=== PATIENT | female | born 1990 | race Caucasian/White ===

== ENCOUNTER 2016-07-20 13:24 | Emergency (ER) | payer SELFPAY ==
--- NOTE | ~2016-07-20 | ER ---
PATIENT'S NAME: DELISA BURNS [facility] AGE: 25 Y [address] ROOM: [place] [id number] LOCATION: [facility] ADMIT DATE: 07/20/2016 ER/Outpatient Report DISCHARGE DATE: 07/20/2016 FAMILY PHYSICIAN: PHYSICIAN, NO ATTENDING PHYSICIAN: Lan Curtis CHIEF COMPLAINT: Cut to left hand. TIME OF THE PATIENT ARRIVAL: 1324 hours. TIME OF THE PATIENT EVALUATION: 1335 hours. HISTORY OF PRESENT ILLNESS: This is a 25-year-old female presents to the ER who states she cut her hand with an apple cutter 5 days ago. The patient states that it seemed to be doing fine, but her sister told her that she should come and have it checked out. There has been no redness, she has had no fever, she states that she has had no other injuries. The patient states that she is not up-to-date on her tetanus shot. ALLERGIES: NO KNOWN ALLERGIES. MEDICATIONS: She is taking metabolism booster. PAST MEDICAL HISTORY: Hypertension. SOCIAL HISTORY: Denies smoking, drug, or alcohol use. REVIEW OF SYSTEMS: A 10-point review of systems was completed and was negative with the exception of those discussed in the HPI. PHYSICAL EXAMINATION: VITAL SIGNS: Height 5 feet stated, weight 88.2 kg taken, blood pressure is 164/106, pulse 118, respirations 16, temperature 97.8 degrees tympanically, and saturations 96% on room air. Iggy Coma Score is 15. GENERAL: Alert, calm, well-developed female, in no acute distress. LUNGS: Clear to auscultation bilaterally. No wheeze or crackles. Normal PATIENT'S NAME: DELISA BURNS [facility] AGE: 25 Y [address] ROOM: [place] [address] LOCATION: [facility] ADMIT DATE: 07/20/2016 ER/Outpatient Report DISCHARGE DATE: 07/20/2016 FAMILY PHYSICIAN: PHYSICIAN, NO ATTENDING PHYSICIAN: Lan Curtis respiratory effort. HEART: Tachycardic. Normal rhythm. No lifts, thrills, or murmurs. EXTREMITIES: No clubbing or cyanosis. She has full range of motion of all limbs. SKIN: She has a superficial healing cut to the web of her left hand between her thumb and index finger approximately a cm in length. There is no erythema. No drainage. No induration. LABS AND X-RAYS: None were done. IMPRESSION: A 1-cm superficial laceration to left hand. ASSESSMENT AND PLAN: We did update the patient on her tetanus shot. We did cleanse the site, placed the antibiotic ointment and bandage to the area. We will dismiss her to home. She needs to continue to monitor symptoms. Follow up with her primary care physician if needed. The patient understands and agrees with care. RAY MENDEZ PA-C FOR MD JAMAAL DOAN/reina /[id number] d: t: 07/23/16 1650, OUTPATIENT REPORT
== END 2016-07-20 13:44 | disposition disaster alternative care site (69) ==
LOC: GACC 13:24
DX: S61.412A Laceration without foreign body of left hand, initial encounter (principal); Z23 Encounter for immunization; W26.9XXA Contact with unspecified sharp object(s), initial encounter